=== PATIENT | female | born 1970 ===

== ENCOUNTER → 2017-09-09 13:46 | Outpatient (REF) | payer OTHER, MEDICAID, SELFPAY | LOC: LAB 13:46 | PROVIDERS: Visit Provider Otolaryngology | DX: J32.8 Other chronic sinusitis (principal) | CPT/HCPCS: 87070; 87075; 87205 ==

== ENCOUNTER → 2018-04-06 14:55 | Outpatient (REF) | payer OTHER, MEDICAID, SELFPAY | LOC: LAB 14:55 | PROVIDERS: Visit Provider Otolaryngology | DX: J32.4 Chronic pansinusitis (principal) | CPT/HCPCS: 87070; 87075; 87186; 87205 ==

== ENCOUNTER → 2018-04-08 18:03 | Outpatient (REF) | payer OTHER, MEDICAID, SELFPAY | LOC: LAB 18:03 | PROVIDERS: Visit Provider Otolaryngology | DX: J32.4 Chronic pansinusitis (principal) | CPT/HCPCS: 87186 ==

== ENCOUNTER → 2018-04-30 13:14 | Outpatient (REF) | payer OTHER, MEDICAID, SELFPAY | LOC: LAB 13:14 | PROVIDERS: Visit Provider Otolaryngology | DX: J32.4 Chronic pansinusitis (principal) | CPT/HCPCS: 87070; 87077; 87186; 87205 ==